=== PATIENT | female | born 1990 | race Caucasian/White ===

== ENCOUNTER 2020-12-19 07:05 | Emergency (ER) | payer MEDICAID ==
[~2020-12-19] VITALS: Ht 167.6 cm; Wt 80.0 kg
--- NOTE | 2020-12-19 07:18 | NUR ---
PT AMBULATORY TO ROOM FROM TRIAGE, PT CHANGED INTO GOWN. MONITORS IN PLACE. CALL LIGHT WITHIN REACH. PT C/O LEFT SHOULDER AND ARM PAIN FOR 1 WEEK. STATES HER LEFT ARM IS TINGLING AND NUMB. CMS INTAKE, FULL ROM.
[2020-12-19] MEDS ORDERED: METHOCARBAMOL 750 MG TABLET PO ONE (07:30)
[2020-12-19] MEDS ORDERED: KETOROLAC 60 MG/2 ML IM ONE (07:30)
[2020-12-19] MEDS ORDERED: KETOROLAC 60 MG/2 ML ONE (07:34)
[2020-12-19] MEDS ORDERED: METHOCARBAMOL 500 MG TABLET ONE (07:34)
[2020-12-19 08:01] VITALS: BP 113/75
--- NOTE | 2020-12-19 08:16 | NUR ---
PA AT FOR RECHECK
--- NOTE | 2020-12-19 08:30 | NUR ---
Patient given discharge instructions and RX, they have confirmed that they understand the instructions. Patient ambulatory with steady gait.
== END 2020-12-19 08:31 | disposition home or self-care (01) ==
LOC: ED 07:55
DX: S29.012A Strain of muscle and tendon of back wall of thorax, initial encounter (principal); X58.XXXA Exposure to other specified factors, initial encounter; Y93.89 Activity, other specified; Y92.89 Other specified places as the place of occurrence of the external cause; Y99.8 Other external cause status
CPT/HCPCS: 96372; 99283; J1885